=== PATIENT | male | born 1960 | race Caucasian/White ===

== ENCOUNTER 2019-07-24 21:02 | Inpatient (IN) | payer MEDICARE, MEDICAID ==
[~2019-07-24] VITALS: Ht 182.9 cm; Wt 104.6 kg
[~2019-07-24 21:02] MED LIST: ALBU8.5H8 INH; ASPI-1264 PO; ATOR20TA PO; BACL10TA PO; CARV25TA5 PO; DILT240C51 PO; HYDR-3972 PO; LISI30TA4 PO; MELO-102 PO; MULT-963 PO; OMEG1CAP2 PO; OMEP20CA11 PO
[2019-07-24] MEDS ORDERED: DOPamine 400mg/D5W 250ml 250 ML IV PRN (21:10)
--- NOTE | 2019-07-24 21:12 | NUR ---
PT WAS BEING PACED UPON ARRIVAL. MD CABRALES D\C'D PACING AT PT IS HOLDING A RATE OF 65
--- NOTE | 2019-07-24 21:19 | NUR ---
PT SHOWS PURPOSEFUL MOVEMENT BY SCRATCHING NOSE
--- NOTE | 2019-07-24 21:27 | NUR ---
DOPAMINE PRIMED AND READY AT BEDSIDE - MD TO PLACE CENTRAL LINE THEN WE WILL START IT.
[2019-07-24 21:41] LABS: BASOPHILS % (AUTO) 0.3 % (0-1); EOSINOPHILS # (AUTO) 0.1 X10'3 (0-0.9); EOSINOPHILS % (AUTO) 0.4 % (0-6); HEMATOCRIT 40.3 % (42.0-52.0); HEMOGLOBIN 13.9 g/dl (14.0-17.9); LYMPHOCYTES # (AUTO) 1.2 X10'3 (1.1-4.8); LYMPHOCYTES % (AUTO) 7.8 % (21-51); MEAN CORPUSCULAR HEMOGLOBIN 33.2 PG (27.0-31.0); MEAN CORPUSCULAR HGB CONC 34.5 g/dL (33.0-36.5); MEAN CORPUSCULAR VOLUME 96.3 FL (78-98); MEAN PLATELET VOLUME 7.5 FL (7.4-10.4); MONOCYTES # (AUTO) 0.5 X10'3 (0-0.9); MONOCYTES % (AUTO) 3.2 % (2-12); NEUTROPHILS # (AUTO) 13.6 X10'3 (1.8-7.7); NEUTROPHILS % (AUTO) 88.3 % (42-75); PLATELET COUNT 144 X10'3 (140-440); RED BLOOD COUNT 4.19 X10'6 (4.70-6.10); RED CELL DISTRIBUTION WIDTH 13.2 % (11.5-14.5); WHITE BLOOD COUNT 15.4 X10'3 (4.5-11.0)
--- NOTE | 2019-07-24 21:47 | NUR ---
PT RESTING COMFORTABLY - HE REMAINS OFF THE TRANSCUTANEOUS PACING AND IS CONSISTENTLY SUSTAINING A RATE IN THE LOW 60'S WITH PALPABLE RADIAL PULSES. PT RESPONDS TO PAINFUL STIMULI AND SHOWS PURPOSEFUL MOVEMENT.
[2019-07-24 21:56] LABS: ALANINE AMINOTRANSFERASE 40 U/L (12-78); ALBUMIN 3.6 G/DL (3.4-5.0); ALBUMIN/GLOBULIN RATIO 1.3 (1.1-1.5); ALKALINE PHOSPHATASE 72 IU/L (46-116); ANION GAP 9 (8-16); ASPARTATE AMINO TRANSFERASE 22 U/L (10-37); BILIRUBIN,TOTAL 0.4 MG/DL (0.1-1.0); BLOOD UREA NITROGEN 13 MG/DL (7-18); BUN/CREATININE RATIO 14.3 (5.4-32.0); CALCIUM 8.2 MG/DL (8.5-10.1); CHLORIDE 108 MMOL/L (99-107); CREATININE 0.91 MG/DL (0.60-1.10); GLUCOSE 123 MG/DL (70-104); POTASSIUM 4.1 MMOL/L (3.5-5.1); SODIUM 142 MMOL/L (135-145); TOTAL CARBON DIOXIDE 25.2 MMOL/L (24-32); TOTAL PROTEIN 6.4 G/DL (6.4-8.2); eGFR 86 ML/MIN
--- NOTE | 2019-07-24 21:56 | NUR ---
DR. TURPIN AT BEDSIDE AND ULTRASOUND PERFORMED. - PT IS NOW A\0X4 AND SPEAKING AND APPROPRIATE - HE IS REORIENTED TO PLAN OF CARE AND AGREEABLE
[2019-07-24 22:03] LABS: ETHANOL < 0.010 GM/DL (0.0-0.010); MAGNESIUM 1.7 MG/DL (1.5-2.4)
--- NOTE | 2019-07-24 22:06 | NUR ---
02 DECREASED TO 2LPM AND PT IS MAINTAINING SATS OF 96% - HE STATES HIS BLOOD PRESSURE HAS BEEN "GOING REAL HIGH AND THEN REAL LOW" LATELY. HE STATES HE HAS BEEN TAKING ALL HIS MEDS DIRECTED.
--- NOTE | 2019-07-24 22:08 | NUR ---
MD AVILA AT BEDSIDE - NO NEED FOR CENTRAL LINE AT THIS TIME.
--- NOTE | 2019-07-24 22:44 | NUR ---
pt is resting quietly on gurney, resp even and unlabored, skin p/w/d, pt is GCS 15, alert and oriented, "I was just working on the roof today...been monitoring my own heart rate"
--- NOTE | 2019-07-24 22:49 | NUR ---
FAMILY AT BEDSIDE - MD CABRALES UPDATING PT AND FAMILY ON PLAN OF CARE.
[2019-07-24 23:15] LABS: CLARITY,URINE CLEAR (Clear); GLUCOSE, URINE NEGATIVE (Neg); KETONES,URINE NEGATIVE (Neg); LEUKOCYTE ESTERASE ,URINE NEGATIVE (Neg); NITRITES, URINE NEGATIVE (Neg); OCCULT BLOOD,URINE TRACE-INTACT (Neg); PROTEIN,URINE NEGATIVE (Neg); UROBILINOGEN,URINE 0.2 E.U/dL (0.2-1.0)
--- NOTE | 2019-07-24 23:18 | NUR ---
A SECOND PERIPHERAL IV WILL BE STARTED AND THEN WE WILL REMOVE THE I\\O IT IS A FIELD START AND ONLY GOOD FOR 24HRS. PT CONTINUES TO BE ALERT AND APPROPRIATE. HE STATES, "I DON'T WANT TO BE IN HERE WHEN IT'S DEER SEASON" PT HAS FULL RECALL OF THE EVENT AND STATES HE WAS SITTING IN THE CHAIR AND BECAME DIZZY AND FELT COLD. HE WAS WITH HIS FATHER WHO CALLED 911 FOR HIM. HE RECALLS BEING PACED AND TRANSPORTED IN THE HELICOPTER.
[2019-07-24 23:22] LABS: URINE AMPHETAMINE SCREEN NEGATIVE (Neg); URINE BARBITUATE SCREEN NEGATIVE (Neg); URINE BENZODIAZEPINES SCREEN POSITIVE (Neg); URINE CANNABINOID SCREEN POSITIVE (Neg); URINE COCAINE SCREEN NEGATIVE (Neg); URINE METHADONE SCREEN NEGATIVE (Neg); URINE OPIATE SCREEN POSITIVE (Neg); URINE PHENCYCLIDINE SCREEN NEGATIVE (Neg)
[2019-07-24 23:25] LABS: UA COLLECTION TYPE VOIDED
[2019-07-24 23:26] LABS: COLOR,URINE Yellow (Yellow)
[2019-07-24 23:27] LABS: BACTERIA,URINE NONE SEEN /HPF (Neg); MUCUS STRANDS NONE SEEN /LPF (Neg); RBC,URINE NONE SEEN /HPF (0-2); SQUAMOUS EPITHELIAL CELL,UR NONE SEEN /LPF (FEW); WBC,URINE NONE SEEN /HPF (0-4)
--- NOTE | 2019-07-24 23:32 | NUR ---
PT REPORTS THAT HIS LEFT ARM IS FEELING "TINGLY" - IT STARTED APPROX 20 MINS AGO WHEN HE SAT UP TO USE THE URINAL IN BED. - NOW HE IS STATING THAT THE LEFT LEG FEELS SIMILAR. SENSATION IS INTACT, JUST "DIFFERENT". NEURO CHECKS ARE DONE AND SHOW WEAKNESS TO THE LEFT ARM AND LEG. LEFT ARM DRIFT. EQUAL SMILE. NO DIFFICULTY SPEAKING OR WITH MENTATION.
--- NOTE | 2019-07-24 23:40 | NUR ---
PT TO CT SCANNER VIA GENE WITH RN AND MONITOR
--- NOTE | 2019-07-24 23:47 | NUR ---
NIECE, SUSAN KWESI [phone] - SHE HAS BEEN UPDATED ON PLAN OF CARE SISTER IN LAW, ASHLEIGH OROSCO [phone] ERMA OROSCO CELL [phone]
[2019-07-25 00:01] LABS: PARTIAL THROMBOPLASTIN TIME 27 SECONDS (22-32)
--- NOTE | 2019-07-25 00:01 | NUR ---
PT BACK FROM CT - STROKE RN AT BEDSIDE - TRYING TO ESTABLISH ONSET TIME - WE ARE NOT SURE IF S\S WERE PRESENT EARLIER BUT PT WAS UNABLE TO TELL US SECONDARY TO HIS LEVEL OF SEDATION.
--- NOTE | 2019-07-25 00:26 | NUR ---
NEURO CONSALT WITH THE TELE STROKE SYSTEM. STROKE NURSE EVARISTO, AT BEDSIDE
--- NOTE | 2019-07-25 00:52 | NUR ---
FAMILY UPDATED (BY PHONE) ON PLAN OF CARE
[2019-07-25] MEDS ORDERED: iohexol 350MG/ML 100ml bottle IV ONE (01:16)
--- NOTE | 2019-07-25 01:19 | NUR ---
HOSPITALIST AT BEDSIDE WITH CLINTON WILKERSON MD
--- NOTE | 2019-07-25 01:30 | NUR ---
PT TO CT
--- NOTE | 2019-07-25 01:31 | NUR ---
2330 ARRIVED FOR LEVEL 1. PT ARRIVED AT 2103 VIA LIFE FLIGHT DUE TO SEVERE BRADYCARDIA WITH HYPOTENSION AND UNRESPONSIVE. 2300 PT WAS ALERT ENOUGH TO FEEL URGE TO URINATE AND TRIED SITTING UP WHILE C/O LEFT ARM AND LEG NUMBNESS AND WEAKNESS. A STROKE ALERT WAS INITIATED. UPON MY ARRIVAL THE PT IS ALERT, ORIENTED WITH TINGLING OVER THE LEFT ARM AND LEG, LEFT ARM DRIFT IS PRESENT. ONSET OF SYMPTOMS NOT CLEAR. PT BECAME MORE RESPONSIVE IN THE ER HE WAS SEEN MOVING ALL 4 EXTREMITIES, HOWEVER, THE ARM WEAKNESS AND NUMBNESS WAS NOTED AT 2300. 0030 TELE NEURO EXAM WITH DR FERNANDES VIA SOC AFTER VERBAL CONSENT OBTAINED. NO TPA DUE TO UNCLEAR ONSET. ADVISING A CTA. PT WITH H/O CABG, HTN ORTHOPEDIC SURGERY. TAKES A DAILY ASA.
--- NOTE | 2019-07-25 01:48 | NUR ---
PT BACK FROM CT. PT PASSED SWALLOW EVAL AND GIVEN ICE WATER UPON REQUEST. NO OTHER NEEDS AT THIS TIME, RESTING COMFORTABLY, RR EVEN AND UNLABORED
--- NOTE | 2019-07-25 02:23 | NUR ---
HEAD OF BED ADJUSTED TO LOWER POSITION - PT ABLE TO SELF POSITION TO RIGHT SIDE
[2019-07-25] MEDS ORDERED: mag hydrox/Alum hydrox/simeth 30ml oral suspension PO PRN (02:55)
[2019-07-25] MEDS ORDERED: HYDROcodone/acetaminophen 10/325mg tab PO PRN (02:55)
[2019-07-25] MEDS ORDERED: acetaminophen 325mg tablet PO PRN (02:55)
[2019-07-25] MEDS ORDERED: magnesium hydroxide 30ml (MOM) UD suspension PO PRN (02:55)
[2019-07-25] MEDS ORDERED: ondansetron/PF 4mg/2ml inj IV PRN (02:55)
[2019-07-25] MEDS: normal saline 1000ml 1,000 ML IV SCH ×2 (02:59→20:54)
--- NOTE | 2019-07-25 03:00 | NUR ---
PT WAS SLEEPING ON RIGHT SIDE AND HAD TWO CONSECUTIVE LOW BP READINGS. AWOKE PT AND HAD HIM SIT UP AND BP RETURNED TO 156/79. MD WILKERSON AWARE
--- NOTE | 2019-07-25 03:42 | NUR ---
Received report from VIRGEN Britt in the ED. Reports that patient is being admitted for CVA and left sided weakness. Will await patient arrival to PCU.
[2019-07-25] MEDS ORDERED: albuterol 2.5 MG/3 ML nebule NEB PRN (04:00)
[2019-07-25 04:05] VITALS: BP 159/84
--- NOTE | 2019-07-25 04:05 | NUR ---
Patient arrived to the floor. He is awake, alert and oriented. He has no personal items with him. Perfomed and documented 2 RN skin check with VIRGEN Britt from the ED. Assessment completed along with DART and assumed care of patient.
[2019-07-25 06:00] VITALS: BP 133/79
--- NOTE | 2019-07-25 06:00 | NUR ---
Patient in room PCU 3027. I have received report from Sadaf NEW and had the opportunity to ask questions and assume patient care.
--- NOTE | 2019-07-25 06:25 | NUR ---
Problems reprioritized. Patient report given, questions answered & plan of care reviewed with VIRGEN Serrano.
--- NOTE | 2019-07-25 06:56 | NUR ---
Call to Dr Tobar re: bp parameters and prn Dopamine. Per report from equipment service engineer nurse Sadaf NEW parameters are to keep patient's systolic bp 160-180 for perfusion. Patient has Dopamine prn. Systolic bp [address] Tobar no Dopamine needs to be given. Normal saline IV is going at 20 ml/hr, no change in rate ordered. Dr Tobar not concerned about bp and wants to allow patient's body to heal itself. Charge nurse Nava NEW notified.
[2019-07-25] MEDS ORDERED: lisinopril 10 MG tablet PO SCH (08:00)
[2019-07-25] MEDS ORDERED: carVEDilol 12.5mg tablet PO SCH (08:00)
[2019-07-25] MEDS ORDERED: baclofen 10mg tablet PO SCH (08:00)
[2019-07-25] MEDS ORDERED: FLU VACC QS2019-20 36MOS UP/PF 60 MCG/0.5 ML SYRINGE IMVAC ONE (10:00)
[2019-07-25] MEDS ORDERED: pneumococcal 23-VAL P-sac vacc 25 mcg/0.5ml vial IMVAC ONE (10:00)
[2019-07-25 11:00] VITALS: BP 134/78
[2019-07-25] MEDS: aspirin 325mg tablet PO SCH (11:32)
[2019-07-25] MEDS: pantoprazole 40mg Tablet.DR PO SCH (11:32)
[2019-07-25] MEDS: diltiazem 30mg tablet PO SCH ×3 (11:33→20:46)
[2019-07-25] MEDS: lisinopril 20mg tablet PO SCH (11:59)
[2019-07-25] MEDS: heparin, porcine 5000 units/ml vial SQ SCH ×2 (12:44→20:49)
[2019-07-25 17:37] VITALS: BP 154/76
[2019-07-25 18:00] VITALS: BP 167/94
--- NOTE | 2019-07-25 18:00 | NUR ---
Patient in room PCU 3027. I have received report from VIRGEN Serrano and had the opportunity to ask questions and assume patient care.
--- NOTE | 2019-07-25 19:05 | NUR ---
Petty Nevarez reviewed pt's chart including MRI report, he advised to monitor pt's heart rate and BP, if pt is franco again, contact per diem physical therapist assistant Dr. Melendez
--- NOTE | 2019-07-25 20:00 | NUR ---
pt refused orthostatic vitals Addendum: 07/26/19 at 0442 by Lindsey Loya RN Amended: Links added.
[2019-07-25] MEDS: carvedilol 6.25mg tablet PO SCH (20:47)
[2019-07-25] MEDS ORDERED: atorvastatin 20mg tablet PO SCH (21:00)
[2019-07-25 22:00] VITALS: BP 160/92
[2019-07-26 02:00] VITALS: BP 167/86
[2019-07-26] MEDS: diltiazem 30mg tablet PO SCH ×2 (02:24→10:09)
[2019-07-26 05:23] LABS: BASOPHILS % (AUTO) 0.4 % (0-1); EOSINOPHILS # (AUTO) 0.1 X10'3 (0-0.9); EOSINOPHILS % (AUTO) 0.8 % (0-6); HEMATOCRIT 40.2 % (42.0-52.0); HEMOGLOBIN 14.2 g/dl (14.0-17.9); LYMPHOCYTES # (AUTO) 1.1 X10'3 (1.1-4.8); LYMPHOCYTES % (AUTO) 10.4 % (21-51); MEAN CORPUSCULAR HEMOGLOBIN 33.5 PG (27.0-31.0); MEAN CORPUSCULAR HGB CONC 35.4 g/dL (33.0-36.5); MEAN CORPUSCULAR VOLUME 94.7 FL (78-98); MEAN PLATELET VOLUME 8.1 FL (7.4-10.4); MONOCYTES # (AUTO) 0.7 X10'3 (0-0.9); MONOCYTES % (AUTO) 6.6 % (2-12); NEUTROPHILS # (AUTO) 8.9 X10'3 (1.8-7.7); NEUTROPHILS % (AUTO) 81.8 % (42-75); PLATELET COUNT 142 X10'3 (140-440); RED BLOOD COUNT 4.24 X10'6 (4.70-6.10); RED CELL DISTRIBUTION WIDTH 13.2 % (11.5-14.5); WHITE BLOOD COUNT 10.9 X10'3 (4.5-11.0)
[2019-07-26 05:53] LABS: ALANINE AMINOTRANSFERASE 36 U/L (12-78); ALBUMIN 3.5 G/DL (3.4-5.0); ALBUMIN/GLOBULIN RATIO 1.1 (1.1-1.5); ALKALINE PHOSPHATASE 71 IU/L (46-116); ANION GAP 11 (8-16); ASPARTATE AMINO TRANSFERASE 21 U/L (10-37); BILIRUBIN,TOTAL 0.6 MG/DL (0.1-1.0); BLOOD UREA NITROGEN 10 MG/DL (7-18); BUN/CREATININE RATIO 12.7 (5.4-32.0); CALCIUM 8.8 MG/DL (8.5-10.1); CHLORIDE 109 MMOL/L (99-107); CHOL/HDL RATIO 3.6 (0.00-4.99); CHOLESTEROL 114 MG/DL (0-200); CREATININE 0.79 MG/DL (0.60-1.10); GLUCOSE 109 MG/DL (70-104); HDL CHOLESTEROL 32 MG/DL (35-60); LDL CHOLESTEROL 69 MG/DL (50-100); POTASSIUM 3.8 MMOL/L (3.5-5.1); SODIUM 144 MMOL/L (135-145); TOTAL CARBON DIOXIDE 23.8 MMOL/L (24-32); TOTAL PROTEIN 6.6 G/DL (6.4-8.2); TRIGLYCERIDES 94 MG/DL (20-135); eGFR > 90 ML/MIN
--- NOTE | 2019-07-26 06:00 | NUR ---
Preceptee documentation: I have reviewed and agree with all interventions, assessments performed and documented by VIRGEN Portillo .
--- NOTE | 2019-07-26 06:00 | NUR ---
Patient in room PCU 3027. I have received report from Cate NEW/Lindsey NEW and had the opportunity to ask questions and assume patient care.
--- NOTE | 2019-07-26 06:25 | NUR ---
Problems reprioritized. Patient report given, questions answered & plan of care reviewed with VIRGEN Serrano.
--- NOTE | 2019-07-26 07:05 | NUR ---
Page to Dr Kwong re: Room 4526O Jose Gaitan, noticed order by you for today for UA, Dr Schmitz's pt, did you put order in on right patient? please advise Maggie [phone]
--- NOTE | 2019-07-26 07:08 | NUR ---
Page to Dr Schmitz re: Room 9131S Jose Gaitan, pt requesting to be DNR, Wants to go home now, threatening to leave AMA, states he will make appt with his Hobbing Machine Operator Dr Melendez, Please see patient SANDIP, Maggie [phone]
[2019-07-26] MEDS ORDERED: CefTRIAXone 2gm/D5W 50ml 50 ML IV SCH (08:00)
[2019-07-26] MEDS: pantoprazole 40mg Tablet.DR PO SCH (10:09)
[2019-07-26 10:10] VITALS: BP_SYST 145
[2019-07-26] MEDS: lisinopril 20mg tablet PO SCH (10:10)
[2019-07-26] MEDS: carvedilol 6.25mg tablet PO SCH (10:10)
[2019-07-26] MEDS: aspirin 325mg tablet PO SCH (10:10)
--- NOTE | 2019-07-26 11:30 | NUR ---
Patient discharged stable to home. Discharge instructions including stroke packet given to patient. Patient verbalized understanding and states he will make a follow-up appointment with his PCP. Tele box removed and returned to telecommunications facility examiner room. Peripheral IV's x 2 removed with cannula intact. All personal belongings returned to patient. No new medications prescribed. Patient left hospital ambulating independently accompanied by friend to private vehicle.
== END 2019-07-26 11:30 | disposition home or self-care (01) | DRG 65 ==
LOC: ER 21:02 → ED HOLD 07-25 03:03 → CMPBEDREQ 07-25 03:06 → PCU 3S 07-25 04:30
PROVIDERS: ADMIT Internal Medicine; ATTEND Internal Medicine
PROC: 3E02340 Introduction of Influenza Vaccine into Muscle, Percutaneous Approach (ICD-10-PCS; principal; 2019-07-25)
PROC: 3E0234Z Introduction of Serum, Toxoid and Vaccine into Muscle, Percutaneous Approach (ICD-10-PCS; 2019-07-25)
PROC: B3251ZZ Computerized Tomography (CT Scan) of Bilateral Common Carotid Arteries using Low Osmolar Contrast (ICD-10-PCS; 2019-07-25)
PROC: B32G1ZZ Computerized Tomography (CT Scan) of Bilateral Vertebral Arteries using Low Osmolar Contrast (ICD-10-PCS; 2019-07-25)
PROC: B3281ZZ Computerized Tomography (CT Scan) of Bilateral Internal Carotid Arteries using Low Osmolar Contrast (ICD-10-PCS; 2019-07-25)
DX: I63.81 Other cerebral infarction due to occlusion or stenosis of small artery (principal); G81.94 Hemiplegia, unspecified affecting left nondominant side; D72.829 Elevated white blood cell count, unspecified; G89.29 Other chronic pain; I10 Essential (primary) hypertension; I95.9 Hypotension, unspecified; M54.9 Dorsalgia, unspecified; R00.1 Bradycardia, unspecified; I25.10 Atherosclerotic heart disease of native coronary artery without angina pectoris; K21.9 Gastro-esophageal reflux disease without esophagitis; Z82.49 Family history of ischemic heart disease and other diseases of the circulatory system; Z87.891 Personal history of nicotine dependence; Z90.81 Acquired absence of spleen; Z95.1 Presence of aortocoronary bypass graft; Z23 Encounter for immunization; Z90.49 Acquired absence of other specified parts of digestive tract
CPT/HCPCS: 36415; 70450; 70496; 70498; 70544; 70551; 71045; 80053; 80061; 80305; 80320; 81001; 83605; 83735; 83880; 84145; 84484; 85025; 85610; 85730; 87040; 87081; 90732; 93005; 97110; 97116; 97162; 99291; G0378; J1265; J1644; J7030; Q2037; Q9967